=== PATIENT | male | born 1980 | race African-American/Black ===

== ENCOUNTER 2017-01-11 13:56 | Emergency (ER) | payer MEDICARE, OTHER ==
--- NOTE | ~2017-01-11 | EKG ---
PATIENT: NELL LAMBERT UNIT #: [id number] Ventricular Rate: 92 BPM Atrial Rate: 92 BPM P-R Interval: 160 ms QRS Duration: 90 ms Q-T Interval: 334 ms QTC Calculation(Bezet): 413 ms P [place]: 53 degrees Calculated R [place]: 35 degrees Calculated T [place]: 36 degrees Diagnosis Line: Normal sinus rhythm Diagnosis Line: Otherwise normal ECG Diagnosis Line: No previous ECGs available Diagnosis Line: Confirmed by EMILY SMALL MD ([id number]) on Diagnosis Line: 02/23/2017 4:07:57 PM INTERPRETING MD: LAURA
[~2017-01-11 13:56] MED LIST: ACID REFLUX MED; ALBUTEROL 0.5ML INH; NO MEDICATIONS; PREDNISONE PO; PRILOSEC; VOLTAREN75 MG PO
== END 2017-01-11 14:13 | disposition home or self-care (01) ==
LOC: SED 13:56
DX: S39.012A Strain of muscle, fascia and tendon of lower back, initial encounter (principal); S29.012A Strain of muscle and tendon of back wall of thorax, initial encounter; X50.0XXA Overexertion from strenuous movement or load, initial encounter
CPT/HCPCS: 93005; 96372; 99283; J1885